=== PATIENT | female | born 1975 | race American Indian/Alaskan Native ===

== ENCOUNTER 2020-04-08 08:10 | Outpatient (CLI) | payer OTHER ==
[2020-04-08 09:58] LABS: Hematocrit 26.4 % (30.3-42.9); Hemoglobin 8.1 gm/dl (10.1-14.3); Mean Corpuscular HGB Conc 31 % (30-34); Platelet Count 403 K/mm3 (140-440); Red Blood Count 4.16 M/mm3 (3.65-5.03)
[2020-04-08] MEDS ORDERED: LIDOCAINE (1%) 10 MG/1 ML VIAL 20 ML MDV ONE (09:58)
[2020-04-08 10:08] LABS: INR 1.02 (0.87-1.13)
[2020-04-08 10:09] LABS: Mean Corpuscular Volume 64 fl (79-97); Partial Thromboplastin Time 29.1 Sec. (24.2-36.6); Red Cell Distribution Width 20.4 % (13.2-15.2)
--- NOTE | 2020-04-08 11:30 | Short Stay Summary ---
Short Stay Documentation Date of service: 04/08/20 Narrative H&P: headaches - History Principal diagnosis: pseudotumor cerebri - Allergies and Medications Current Medications: Allergies No Known Allergies Allergy (Unverified 04/08/20 08:10) Home Medications Medication Instructions Recorded Confirmed Last Taken Type Amlodipine Besylate [Norvasc] 5 mg PO DAILY 04/08/20 04/08/20 04/03/20 History 5 mg Levothyroxine [Synthroid] 100 mcg PO DAILY 04/08/20 04/08/20 04/03/20 History 100 mcg - Physical exam General appearance: no acute distress Extremities: no ischemia, pulses intact, pulses symmetrical, No edema, normal temperature, normal color Neurological: Normal gait, Normal speech, Strength at 5/5 X4 ext - Brief post op/procedure progress note Date of procedure: 04/08/20 Pre-op diagnosis: pseudotumor cerebri Post-op diagnosis: same Procedure: lumbar puncture under flouro Anesthesia: local Findings: elevated pressures Surgeon: JEREMY JURADO Estimated blood loss: none Pathology: list (4 tubes) Specimen disposition: to lab Condition: stable - Hospital course Hospital course: uneventful - Disposition Condition at discharge: Good Disposition: DC-01 TO HOME OR SELFCARE Short Stay Discharge Plan Follow up with: LOUIS MAYORGA MD [Primary Care Provider] - 7 Days
[2020-04-08 11:56] LABS: Glucose,CSF 63 mg/dL
--- NOTE | 2020-04-08 11:57 | Fluoroscopy Report ---
LUMBAR PUNCTURE INDICATION : Benign intracranial hypertension PROCEDURE: The risks (including but not limited to bleeding, infection, and spinal headache) and joe efits were explained to the patient and informed consent was obtained. A time out procedure was perf ormed. The procedure site was prepped and draped in the usual sterile fashion and lidocaine was used for local anesthesia. Under fluoroscopic guidance, a 22-gauge spinal needle was advanced into the L2-3 interlaminar space. The opening pressure was 260 mm H2O which was calculated by adding the length of the needle (9 cm) to the height of the CSF column. 4 separate collection tubes were used to obtain approximately 15 cc of CSF per the ordering physician's request. Samples were sent to the lab per the ordering physician sp ecifications for further evaluation. The patient tolerated the procedure well with no complications. IMPRESSION: Successful lumbar puncture as outlined above. Opening pressure was 260 mm H20. Fluoroscopic time: 1 minute Number of fluoroscopic images: 1 Signer Name: Kelvin Hogan Jr, MD Signed: 04/08/2020 11:53 AM Workstation Name: [id number]
[2020-04-08 12:19] VITALS: BP 135/82
[2020-04-08 13:54] LABS: Appearance,CSF Clear; White Blood Cell,CSF 2 /mm3 (1-10)
[2020-04-08 13:55] LABS: Red Blood Cell,CSF 7 /mm3 (0-0)
[2020-04-08 14:52] LABS: Total Cells Counted 75 /mm3
== END 2020-04-08 08:11 | disposition home or self-care (01) ==
LOC: FLUORO 08:10
PROVIDERS: ATTEND Specialist
DX: G93.2 Benign intracranial hypertension (principal); I10 Essential (primary) hypertension; Z90.6 Acquired absence of other parts of urinary tract; Z98.890 Other specified postprocedural states; Z82.49 Family history of ischemic heart disease and other diseases of the circulatory system; Z79.899 Other long term (current) drug therapy; Z85.89 Personal history of malignant neoplasm of other organs and systems
CPT/HCPCS: 36415; 62270; 77003; 82947; 84160; 85027; 85610; 85730; 86592; 88112; 89051

== ENCOUNTER 2020-04-15 10:22 | Outpatient (CLI) | payer OTHER ==
--- NOTE | 2020-04-15 12:29 | Magnetic Resonance Report ---
NONENHANCED and contrast-enhanced MR SCAN OF THE BRAIN: INDICATION / CLINICAL INFORMATION: PSEUDOTUMOR. TECHNIQUE: Multiplanar, multisequence MR images of the brain obtained. COMPARISON: None available. FINDINGS: BRAIN / INTRACRANIAL CONTENTS: No acute ischemia, acute hemorrhage, mass effect, midline shift, or hy drocephalus. No chronic infarct or atrophy. No significant white matter abnormality. 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 VASCULAR FLOW-VOIDS: No significant abnormality. ORBITS: No significant abnormality of visualized orbits. SINUSES / MASTOIDS: No significant abnormality of visualized sinuses and mastoid air cells. ADDITIONAL FINDINGS: None. IMPRESSION: Normal MR scan of the brain Signer Name: Corazon Lopez MD Signed: 04/15/2020 12:24 PM Workstation Name: [id number]
== END 2020-04-15 10:23 | disposition home or self-care (01) ==
LOC: MRI 10:22
PROVIDERS: ATTEND Specialist
DX: G93.2 Benign intracranial hypertension (principal)
CPT/HCPCS: 70553; A9577

== ENCOUNTER 2021-07-20 09:06 | Outpatient (CLI) | payer OTHER ==
--- NOTE | 2021-07-20 09:50 | XRay Report ---
Lumbar spine 3 views INDICATION: Back pain FINDINGS: Alignment appears normal. No compression fractures seen. Sacrum and sacroiliac joints appea r normal. Signer Name: Tera Contrreas MD Signed: 07/20/2021 9:45 AM Workstation Name: [id number]
== END 2021-07-20 09:07 | disposition home or self-care (01) ==
LOC: XRAY 09:06
PROVIDERS: ATTEND Internal Medicine
DX: M54.50 Low back pain, unspecified (principal)
CPT/HCPCS: 72100